=== PATIENT | male | born 1975 | race Caucasian/White ===

== ENCOUNTER 2017-03-25 10:14 | Emergency (ER) | payer BC, MEDICARE ==
[~2017-03-25 10:14] MED LIST: ADVAIR 1001 DISK W/D IH; ADVAIR 2501 DISK W/D IH; ALBUTEROL SULF8.5 GM IH; ALBUTEROL17 GM; AMBIEN CR12.5 MG/BO; ATIVAN2 MG; AUGMENTIN875 MG/TAB GT; BENADRYL25 MG PO; BUSPAR10 MG PO; CELEXA20 MG PO; CELEXA40 M1 PO; CELEXA40 MG; CEPHALEXIN500 MG PO; ELAVIL25 MG PO; FLECTOR1 EACH TP; FLEXERIL10 MG; H; HYDROCHLOROTHIA25 MG; HYDROCHLOROTHIA25 MG PO; HYDROCODONE/APA1 TAB; HYDROXYZINE HCL50 MG PO; KLONOPIN0.5 MG PO; LATUDA80 MG PO; LEXAPRO20 MG; LISINOPRIL20 MG; MORPHINE SULFAT60 MG PO; NASONEX17 GM NS; NEURONTIN400 MG PO; NORCO 10/325 TA1 TAB PO; NORCO 10/3251 TA1 PO; NORCO 5/325 TAB1 TAB PO; NORCO 5/3251 TA1 PO; OXYCODONE/APAP PO; PERCOCET 5/3251 TAB PO; PROTONIX40 M1 PO; RANITIDINE HCL75 MG; REQUIP1 MG PO; RISPERDAL0.5 MG PO; SEREVENT D50 MCG/DIS; SINGULAIR10 MG PO; SYMBICORT 16010.2 GM; TALADINE150 MG PO; TRAZODONE100 MG PO; TRAZODONE50 MG; TRILEPTAL300 M2 PO; ULTRAM50 MG; WELLBUTRIN SR150 M2 PO; XANAX0.5 MG PO; XANAX1 MG PO; ZANTAC150 MG PO; ZEGERID 40 MG C1 CAP PO; ZYPREXA10 MG PO
[2017-03-25] MEDS ORDERED: ZYPREXA5 M1 PO (10:50)
[2017-03-25] MEDS ORDERED: FISH OIL300 M1 PO (10:51)
[2017-03-25] MEDS ORDERED: KLOR-CON20 MEQ PO (10:51)
[2017-03-25] MEDS ORDERED: MEDROL4 M1 PO (10:52)
[2017-03-25] MEDS ORDERED: DIFLUNISAL500 M1 PO (10:53)
[2017-03-25] MEDS ORDERED: VALIUM5 M1 PO (11:26)
[2017-03-25] MEDS ORDERED: METHADONE HCL10 M1 PO (11:37)
== END 2017-03-25 11:33 ==
LOC: EDMED 10:14
DX: S40.011A Contusion of right shoulder, initial encounter (principal); M54.6 Pain in thoracic spine; M54.2 Cervicalgia; F31.9 Bipolar disorder, unspecified; Z88.6 Allergy status to analgesic agent; F17.200 Nicotine dependence, unspecified, uncomplicated; Z79.899 Other long term (current) drug therapy; W19.XXXA Unspecified fall, initial encounter
CPT/HCPCS: J1885